=== PATIENT | male | born 1945 | race Caucasian/White ===

== ENCOUNTER 2016-07-16 00:40 | Inpatient (IN) | payer OTHER ==
[2016-07-16] VITALS (7 sets, daily range): BP systolic 150–169; BP diastolic 54–78
[~2016-07-16] VITALS: Ht 188 cm; Wt 115.7 kg
--- NOTE | ~2016-07-16 | HC ---
[facility] [address] [place] [address] CONSULTATION Name: NE FIGUEREDO Room #: 405-P [facility] IN M.R.#: [id number] Admission: 07/16/16 Attend Phys: David Madden MD Discharge: 07/19/16 Date of : 45 Report #: [id number] THIS REPORT FOR: //name// CC: FAM physician/PCP David Madden DATE OF SERVICE: 07/16/2016 PRIMARY CARE PHYSICIAN: Ne Green MD. REFERRAL PHYSICIAN: David Madden MD. REASON FOR REFERRAL: Dyspnea. HISTORY OF PRESENT ILLNESS: The patient is a 70-year-old white male who presents to the Emergency Room with 5-day history of progressive cough and dyspnea. A pulmonary consultation was requested. The patient is known to the Pulmonary Service. He is followed longitudinally by Dr. Metzger. He has known asthma. His last spirometry performed last year shows mild airflow obstruction. Normally for his asthma, he is on Qvar 80 mcg 1 puff twice a day and albuterol 2 puffs p.r.n. Albuterol in the past has caused worsening anxiety. The patient has been at [facility] for rehabilitation recently. He was doing fairly well until 5 days ago. Otherwise, denies any chest pain, hemoptysis, nausea, vomiting, diarrhea. PAST MEDICAL HISTORY: Remarkable for asthma, mild persistent, on inhaled corticosteroid therapy, coronary artery disease with ischemic cardiomyopathy, EF approximately 37%, hyperlipidemia, hypertension, bipolar disorder, dyspepsia, degenerative joint disease. PAST SURGICAL HISTORY: Remarkable for vocal cord nodule resection in 1985. ALLERGIES: None to medications. MEDICATIONS: Lists are reviewed. Inhalers as mentioned above including Qvar and albuterol. Medications include iron supplements, Depakote, Zocor, bupropion, Risperdal, Glucotrol, Actos, Pepcid, aspirin, Excedrin, Advil, Lotensin, Pristiq, Coreg, clonazepam, Colace, Ventolin HFA 2 puffs p.r.n., Advair which was supposed to be discontinued, Levemir, Glucophage, Centrum, MiraLax, Dulcolax, DuoNeb p.r.n., Levaquin 750 mg once a day, prednisone 40 mg once a day. [address] [address] CONSULTATION Name: NE FIGUEREDO Room #: 405-P ON LICENSE OF [facility].#: [id number] Admission: 07/16/16 Attend Phys: David Madden MD Discharge: 07/19/16 Date of : 45 Report #: [id number] FAMILY HISTORY: Notable for prostate cancer in father who . Mother at 60 years of age, she had cervical cancer. SOCIAL HISTORY: The patient has smoked for about 35 years at a pack a day, quit more than 5 years ago. He drinks socially. He is retired from office work. REVIEW OF SYSTEMS: As mentioned above, otherwise 10-point system review negative. PHYSICAL EXAMINATION: GENERAL: He is awake, alert, in no apparent distress. VITAL SIGNS: Temperature is 98 degrees Fahrenheit, pulse is 70, respiratory rate is 20, blood pressure 150/67 mmHg, saturation 91% on supplemental O2. HEENT: Normocephalic, atraumatic. NECK: Supple without any lymphadenopathy or thyromegaly. CHEST: Breath sounds have decreased bilaterally. No obvious wheezes or rales. CARDIOVASCULAR: Normal S1, S2. There are no murmurs or gallop. There is no JVD. There is no carotid bruit. Pulses are 2+/4+ bilaterally. ABDOMEN: Soft, nontender, no organomegaly or masses felt. EXTREMITIES: There is no cyanosis or clubbing, remarkable for less than 1+ bilateral pretibial edema. LABORATORY DATA: Portable chest x-ray shows vascular congestion, small lung volume, questionable mild right lower lobe infiltrates. Ammonia level was 33, VQ scan showed low probability scan. BNP is 1700. Troponin is normal. D-dimer was 0.95. IMPRESSION: 1. Progressive cough and dyspnea in this 70-year-old white male. Chest x-ray suggests possible right lower lobe infiltrates. He has a history of asthma. Suspect the patient has component exacerbation of asthma with possible pneumonia. With his history of tobacco use, he likely has a component of chronic obstructive lung disease in addition. 2. Mild infiltrates, possible pneumonia. 3. Encephalopathy, he was found to be lethargic on the day of admission. This has improved. 4. Bipolar disorder. 5. Diabetes mellitus type 2. 6. Hypertension. RECOMMENDATION: Agree with broad spectrum antibiotics, corticosteroids and bronchodilators. DVT and GI prophylaxis will be addressed. [address] [address] CONSULTATION Name: NE FIGUEREDO Room #: 405-P [facility] IN M.R.#: [id number] Admission: 07/16/16 Attend Phys: David Madden MD Discharge: 07/19/16 Date of : 45 Report #: [id number] Thank you for this consultation. <ELECTRONICALLY SIGNED> By: Ernesto Vasquez MD 07/19/16 1634 1701 1822 Ernesto Vasquez MD /nt
--- NOTE | ~2016-07-16 | EKG ---
[address] [address] ELECTROCARDIOGRAM REPORT Name: NE FIGUEREDO Room #: 405-P ADM IN M.R.#: [id number] Admission: 07/16/16 Attend Phys: David Madden MD Discharge: Date of : 45 Report #: [id number] THIS REPORT FOR: //name// [facility] ED Test Date: 2016-07-16 Test Time: 00:55:56 Pat Name: NE FIGUEREDO Department: Room: 405 Gender: M Production Line Worker: MINO : 1945 Requested By: Emy Aguilar Order Number: [id number] MD: Arthur Castillo Measurements Intervals [place] Rate: 82 P: 53 [place]: 197 QRS: 66 QRSD: 160 T: -51 QT: 418 QTc: 489 Interpretive Statements Atrial-sensed ventricular-paced rhythm No further analysis attempted due to paced rhythm No previous ECG available for comparison Electronically Signed On 07-16-2016 8:22:54 BEAN ROASTER by Arthur Castillo [email or web address] <ELECTRONICALLY SIGNED> By: Arthur Castillo MD 07/16/16 0822 0055 Arthur Castillo MD /KENNETH
--- NOTE | ~2016-07-16 | D ---
[facility] [place] [address] [place] [address] DISCHARGE SUMMARY Name: NE FIGUEREDO Room #: 405-P [facility] IN M.R.#: [id number] Admission: 07/16/16 Attend Phys: David Madden MD Discharge: Date of : 45 Report #: [id number] THIS REPORT FOR: //name// CC: [facility] physician/PCP David Madden DATE OF SERVICE: 07/19/2016 TYPE OF DICTATION: Discharge summary after kwss-ss-frro encounter on 07/19/2016. DISCHARGE DIAGNOSES: 1. Lethargy, resolved. 2. Acute respiratory failure with hypoxemia, resolved. 3. Chronic obstructive pulmonary disease exacerbation, resolved. 4. Healthcare-associated pneumonia, right lower lobe infiltrate. 5. Diabetes mellitus. 6. Hypertension. 7. Bipolar disorder. DISCHARGE MEDICATIONS: See discharge summary. HOSPITAL COURSE: The patient was admitted to the hospital from assisted secondary to lethargy. The patient was found to have pneumonia in the right lower lobe. The patient was started on Zosyn and he was responding well. At the same time, he has COPD exacerbation and he was started on IV steroids and bronchodilators and he responded very well. The patient continues to improve, so we are going to taper his steroids. He was evaluated for rehab, but did not qualify. So, he is going back to the SNF service. The patient is stable. His last chest x-ray done today had no changes from previous exam. The patient is stable and going to SNF as I mentioned. The patient was complaining of abdominal distention and we did an ultrasound of the abdomen, without any changes or pathology there. It was normal. Also he had got the lung scan and V/Q scan, which did not show any pulmonary embolism. So, the patient is going to SNF as mentioned above. <ELECTRONICALLY SIGNED> By: Justina Andino MD 07/19/16 1438 1146 1227 Justina Andino MD /nt
--- NOTE | ~2016-07-16 | 2DMMODE ---
[facility] [place] [address] 2 D/M-MODE ECHOCARDIOGRAM Name: NE FIGUEREDO Room #: 405-P [facility] IN .#: [id number] Admission: 07/16/16 Attend Phys: Dhruv Browne Discharge: Date of : 45 Date of Service: 07/16/16 1409 Report #: [id number] THIS REPORT FOR: //name// Transthoracic Echocardiography Ordering physician: Referring physician: Brandon Francis Director Furniture: Melodie Spencer Indications/History: Short of breath. Hx: Pacemaker 06/2016, DM, HTN, HLP BP: 155 / HR: 75bpm Height: 74in Weight: 254.5lb 67 Study data: M-mode, complete 2D, complete spectral Doppler, and color Doppler. Location: Bedside. Routine. Image quality was adequate. 2D measurements Normal Normal LVID ED 64.2mm 36-57 IVS ED 10.3mm 6-11 LVID ES 47.4mm 23-40 LVPW ED 11.4mm 6-11 LA volume 32ml/m2 16-28 AoRoot diam 35.1mm 21-37 index ED LVOT diameter 24mm 18-23 Findings: Left ventricle: The cavity size was dilated. Wall thickness was normal. Systolic function was normal. The estimated ejection fraction was in the range of 50% to 55%. Wall motion was normal. Right ventricle: The cavity size was mildly dilated. Systolic function was normal. Ventricular septum: Paradoxical motion of septum consistent with a paced rhythm.. Right atrium: The atrium was mildly dilated. Pacer wire or catheter noted in right atrium. Left atrium: The atrium was mildly dilated. Volume index: 32ml/m2 (S). [facility] [place] [address] 2 D/M-MODE ECHOCARDIOGRAM Name: NE FIGUEREDO Room #: 405-P [facility] IN M.R.#: [id number] Admission: 07/16/16 Attend Phys: David LeónDhruv Marquez Discharge: Date of : 45 Date of Service: 07/16/16 1409 Report #: [id number] Aortic valve: Structurally normal valve. Doppler: There was no stenosis. No regurgitation. Peak velocity: 128.1cm/s (S). Mitral valve: Mildly calcified annulus. Mildly thickened leaflets . Doppler: There was no evidence for stenosis. Mild to moderate regurgitation. Peak E-wave velocity: 68.7cm/s. Peak A-wave velocity: 133.6cm/s. Tricuspid valve: Structurally normal valve. Doppler: There was no evidence for stenosis. Mild regurgitation. Regurgitant peak velocity: 288.1cm/s. Peak RV-RA gradient: 33mm Hg (S). Pulmonic valve: Structurally normal valve. Doppler: There was no evidence for stenosis. Trivial regurgitation. Pericardium: There was no pericardial effusion. Aorta: Aortic root: The aortic root was normal in size. Pulmonary artery: Systolic pressure was estimated to be 38mm Hg. Diastolic function: Doppler parameters are consistent with abnormal left ventricular relaxation (grade 1 diastolic dysfunction). Systemic veins: Inferior vena cava: The vessel was normal in size; the respirophasic diameter changes were in the normal range (= 50%). Conclusions 1. Left ventricle: The cavity size was dilated. Wall thickness was normal. Systolic function was normal. The estimated ejection fraction was in the range of 50% to 55%. Wall motion was normal. 2. Ventricular septum: Paradoxical motion of septum consistent with a paced rhythm.. 3. Right ventricle: The cavity size was mildly dilated. 4. Right atrium: Pacer wire or catheter noted in right atrium. 5. Aortic valve: Structurally normal valve. 6. Mitral valve: Mildly calcified annulus. Mildly thickened leaflets . Mild to moderate regurgitation. 7. Pulmonic valve: Trivial regurgitation. 8. Tricuspid valve: Mild regurgitation. [facility] [address] [place] [address] 2 D/M-MODE ECHOCARDIOGRAM Name: NE FIGUEREDO Room #: 405-P [facility] IN .R.#: [id number] Admission: 07/16/16 Attend Phys: Dhruv Browne Discharge: Date of : 45 Date of Service: 07/16/16 140 Report #: [id number] 9. Pulmonary arteries: Systolic pressure was estimated to be 38mm Hg. <ELECTRONICALLY SIGNED> By: Cameron Garcia MD 07/16/16 1516 1409 15 Cameron Garcia MD /cayla
[~2016-07-16 00:40] MED LIST: APAP500 PO; ASPIR 8181 MG PO; BEANO300 UNIT PO; BENAZEPRIL HCL20 MG PO; BUPROPION HCL200 MG PO; DEPAKOTE 250MG250 M1 PO; EXCEDRIN CAPLE1 EACH PO; GLUCOTROL5 MG PO; IBUPROFEN 200200 M1 PO; IRON325 PO; METFORMIN HCL500 MG PO; PEPCID20 MG PO; PIOGLITAZONE15 MG; PRISTIQ50 M1 PO; RISPERDAL4 M1 PO; ZOCOR20 MG PO
[2016-07-16] MEDS ORDERED: ACCUNEB SO1.25 MG/1 INH (01:00)
[2016-07-16] MEDS ORDERED: EXCEDRIN CAPLE1 EACH PO (01:01)
[2016-07-16] MEDS ORDERED: COREG25 MG PO (01:02)
[2016-07-16] MEDS ORDERED: CLONAZEPAM 0.50.5 M1 PO (01:03)
[2016-07-16] MEDS ORDERED: COLACE100 MG PO (01:04)
[2016-07-16 01:06] LABS: HEMATOCRIT 39.3 % (42.0-52.0); MCH 31.1 pg (26.0-34.0); MCHC 33.1 % (28.0-37.0); MCV 94.1 fL (80.0-100.0); PLATELET COUNT 127 thou/uL (150-400); RBC 4.17 mil/uL (4.50-6.00); WBC 6.6 thou/uL (4.0-11.0)
[2016-07-16 01:10] LABS: MANUAL DIFF YES
[2016-07-16] MEDS ORDERED: VENTOLIN HFA 1818 GM INH (01:12)
[2016-07-16] MEDS ORDERED: ADVAIR HFA 230M12 GM INH (01:18)
[2016-07-16 01:20] LABS: CALCIUM 8.7 mg/dL (8.5-10.1); CREATININE 0.8 mg/dL (0.6-1.3); POTASSIUM 4.4 mmol/L (3.5-5.1)
[2016-07-16] MEDS ORDERED: LEVEMIR SUBQ (01:24)
[2016-07-16] MEDS ORDERED: GLUCOPHAGE XR500 MG PO (01:24)
[2016-07-16] MEDS ORDERED: CENTRUM SILVER1 EAC2 PO (01:25)
[2016-07-16] MEDS ORDERED: MIRALAX17 GM PO (01:28)
[2016-07-16] MEDS ORDERED: BISACODYL SUPP10 MG RECTAL (01:32)
[2016-07-16] MEDS ORDERED: DUONEB 2.5-0.5 M3 ML PO (01:33)
[2016-07-16] MEDS ORDERED: LEVAQUIN 750 M750 MG PO (01:33)
[2016-07-16] MEDS ORDERED: PREDNISONE 10 M10 MG PO (01:34)
[2016-07-16] MEDS ORDERED: PROBIOTIC1 EAC5 PO (01:34)
[2016-07-16 01:42] LABS: ABSOLUTE NEUTROPHILS 3.8 thou/uL (1.4-8.2); TOTAL CELL COUNT 100
[2016-07-16 09:08] LABS: ABG SAMPLE TYPE ARTERIAL; BE(vivo) 4.1 mmol/L (-2 to +3); HCO3 29.1 mmol/L (22.0-26.0); LACTATE 1.09 mmol/L (0.5-2.0); O2(CT) 16.4 mL/dL (15.0-23.0); O2Hb 85.5 % (92.0-98.0); PCO2 44.8 mmHg (35.0-45.0); PO2 50.9 mmHg (80.0-100.0); STICK SITE R.BRACHIAL; sO2 86.8 % (92.0-98.0); tCO2 30.4 mmol/L (24.0-30.0)
[2016-07-17 04:25] VITALS: BP 146/57
[2016-07-17 08:00] VITALS: BP 149/68
[2016-07-17 16:00] VITALS: BP 167/66
[2016-07-17 20:00] VITALS: BP 143/64
[2016-07-18 06:22] LABS: ABSOLUTE NEUTROPHILS 7.9 thou/uL (1.4-8.2); BASOPHILS 0.2 % (0.0-2.0); HEMATOCRIT 39.2 % (42.0-52.0); HEMOGLOBIN 13.2 gm/dL (14.0-18.0); MCH 30.9 pg (26.0-34.0); MCHC 33.6 % (28.0-37.0); MONOCYTES 5.4 % (1.0-8.0); PLATELET COUNT 161 thou/uL (150-400); POLYS 82.4 % (36.0-66.0); RBC 4.26 mil/uL (4.50-6.00); RDW 13.4 % (10.5-14.5); WBC 9.6 thou/uL (4.0-11.0)
[2016-07-18 06:28] LABS: MANUAL DIFF NO
[2016-07-18 06:31] LABS: CALCIUM 8.7 mg/dL (8.5-10.1); CREATININE 0.7 mg/dL (0.6-1.3); POTASSIUM 4.2 mmol/L (3.5-5.1)
[2016-07-18 08:00] VITALS: BP 161/68
[2016-07-18 19:47] VITALS: BP 144/56
[2016-07-19 00:32] VITALS: BP 155/73
[2016-07-19 05:43] LABS: ABSOLUTE NEUTROPHILS 6.4 thou/uL (1.4-8.2); BASOPHILS 0.4 % (0.0-2.0); HEMATOCRIT 41.2 % (42.0-52.0); HEMOGLOBIN 13.8 gm/dL (14.0-18.0); LYMPHOCYTES 16.6 % (24.0-44.0); MCH 31.4 pg (26.0-34.0); MCHC 33.5 % (28.0-37.0); MCV 93.9 fL (80.0-100.0); MONOCYTES 7.6 % (1.0-8.0); PLATELET COUNT 172 thou/uL (150-400); POLYS 75.4 % (36.0-66.0); RBC 4.38 mil/uL (4.50-6.00); WBC 8.5 thou/uL (4.0-11.0)
[2016-07-19 05:49] LABS: MANUAL DIFF NO
[2016-07-19 06:05] LABS: CALCIUM 8.6 mg/dL (8.5-10.1); CREATININE 0.8 mg/dL (0.6-1.3); POTASSIUM 4.1 mmol/L (3.5-5.1)
[2016-07-19 08:00] VITALS: BP 163/69
[2016-07-19] MEDS ORDERED: ZOSYN 3.3753.375 GM IV (11:52)
== END 2016-07-19 15:12 | DRG 177 ==
LOC: ER 00:40 → EROBS 01:46 → 4N 01:46
PROVIDERS: Emergency Medicine; Hospitalist; Nurse Practitioner
DX: J69.0 Pneumonitis due to inhalation of food and vomit (principal); G92 Toxic encephalopathy; J96.01 Acute respiratory failure with hypoxia; J44.1 Chronic obstructive pulmonary disease with (acute) exacerbation; E11.9 Type 2 diabetes mellitus without complications; F31.9 Bipolar disorder, unspecified; I10 Essential (primary) hypertension; E78.5 Hyperlipidemia, unspecified; I25.10 Atherosclerotic heart disease of native coronary artery without angina pectoris; I25.5 Ischemic cardiomyopathy; M19.90 Unspecified osteoarthritis, unspecified site; R53.83 Other fatigue; J98.01 Acute bronchospasm; Z79.82 Long term (current) use of aspirin; Z79.899 Other long term (current) drug therapy; Z87.891 Personal history of nicotine dependence; Z80.42 Family history of malignant neoplasm of prostate; Z80.59 Family history of malignant neoplasm of other urinary tract organ
CPT/HCPCS: 10790

== ENCOUNTER → 2019-08-05 | Outpatient (CLI) | payer OTHER ==
[~2019-08-05] MED LIST changes: +ACCUNEB SO1.25 MG/1 INH; +ADVAIR HFA 230M12 GM INH; -APAP500 PO; +BISACODYL SUPP10 MG RECTAL; +CENTRUM SILVER1 EAC2 PO; +CLONAZEPAM 0.50.5 M1 PO; +CLOPIDOGREL75 MG PO; +COLACE100 MG PO; +COREG25 MG PO; +COZAAR 25 MG TA25 M1 PO; +DUONEB 2.5-0.5 M3 ML PO; +FUROSEMIDE 40 M40 MG PO; +GLUCOPHAGE XR500 MG PO; +LEVAQUIN 750 M750 MG PO; +LEVEMIR SUBQ; +MIRALAX17 GM PO; +POTASSIUM20 PO; +PREDNISONE 10 M10 MG PO; +PROBIOTIC1 EAC5 PO; +TYLENOL EXTRA500 MG PO; +VENTOLIN HFA 1818 GM INH; +ZOSYN 3.3753.375 GM IV
== END ==
LOC: SJCVC 15:47
DX: I45.4 Nonspecific intraventricular block (principal); R94.31 Abnormal electrocardiogram [ECG] [EKG]; I42.9 Cardiomyopathy, unspecified; I10 Essential (primary) hypertension; E78.00 Pure hypercholesterolemia, unspecified; E11.9 Type 2 diabetes mellitus without complications; I25.10 Atherosclerotic heart disease of native coronary artery without angina pectoris; Z95.0 Presence of cardiac pacemaker; Z79.899 Other long term (current) drug therapy; Z87.891 Personal history of nicotine dependence

== ENCOUNTER → 2019-08-26 | Outpatient (CLI) | payer OTHER | LOC: SJCVCIMAG 12:27 | DX: I11.9 Hypertensive heart disease without heart failure (principal); I25.89 Other forms of chronic ischemic heart disease; R06.09 Other forms of dyspnea; I42.9 Cardiomyopathy, unspecified; R07.9 Chest pain, unspecified; E78.00 Pure hypercholesterolemia, unspecified; Z79.82 Long term (current) use of aspirin; Z79.899 Other long term (current) drug therapy ==

== ENCOUNTER 2019-08-31 06:35 | Outpatient (CLI) | payer OTHER ==
[~2019-08-31] VITALS: Ht 185.4 cm; Wt 108.4 kg
[~2019-08-31 06:35] MED LIST changes: -CLOPIDOGREL75 MG PO; -COZAAR 25 MG TA25 M1 PO; -FUROSEMIDE 40 M40 MG PO; -POTASSIUM20 PO
[2019-08-31 07:27] LABS: HEMATOCRIT 42.1 % (42.0-52.0); HEMOGLOBIN 14.1 gm/dL (14.0-18.0); MCHC 33.4 g/dL (28.0-37.0); MCV 95.8 fL (80.0-100.0); RBC 4.4 mil/uL (4.50-6.00); RDW 13.2 % (10.5-14.5); WBC 8.3 thou/uL (4.0-11.0)
[2019-08-31 07:29] VITALS: BP 133/74
[2019-08-31 07:35] LABS: CALCIUM 9.5 mg/dL (8.5-10.1); CREATININE 0.9 mg/dL (0.7-1.3); POTASSIUM 4.2 mmol/L (3.5-5.1)
[2019-08-31] MEDS ORDERED: FUROSEMIDE 40 M40 MG PO (07:54)
[2019-08-31] MEDS ORDERED: POTASSIUM20 PO (07:54)
[2019-08-31] MEDS ORDERED: COZAAR 25 MG TA25 M1 PO (07:55)
[2019-08-31] MEDS ORDERED: CLONAZEPAM 0.50.5 M1 PO (07:56)
[2019-08-31 12:18] VITALS: BP 147/58
--- NOTE | 2019-08-31 17:09 | CATHLAB ---
[facility] [place] [address] [place] [address] INVASIVE PROCEDURE REPORT Name: NE FIGUEREDO Room #: 214-P [facility]#: [id number] Admission: 08/31/19 Attend Phys: Sheldon Murray MD Discharge: Date of : 45 Report #: [id number] THIS REPORT FOR: cc: Ne Green MD, David L. MD Park, Jin S. MD ~ APPROVED REPORT Study performed: 08/31/2019 07:34:11 Patient Details Patient Status: Out-Patient Room #: The patient is a 73 year-old male Event Personnel Sheldon Murray Griddle Cook, Jordana Ricketts RN RN, Vickie Villalba RTJose Nunes, Ne Rothman Monitor Procedures Performed Left Heart Cath w/or w/o Coronaries [id number] [facility] Aortogram Abdominal Peripheral Angio [id number] Indication Dyspnea, Positive stress test Risk Factors HypercholesterolemiaPhysical Activity, Coronary Artery DiseaseHypertension Procedure Narrative The Right Groin^ was infiltrated with 1% Lidocaine subcutaneous anesthesia. A PINNACLE 4FR Sheath #[id number] sheath was inserted into the RFA^. Coronary angiography was performed using coronary diagnostic catheters. The right coronary system was accessed and visualized with a JR4 catheter. The left coronary system was accessed and visualized with a JL4 catheter. The left ventricle was accessed and visualized with a PIGTAIL catheter. Left ventricular/Aortic Valve gradient assessed via catheter pullback. An aortogram of the abdominal aorta was performed. The patient tolerated the procedure well and there were no complications associated with the procedure. A 4 Setswana sheath was inserted into the right femoral artery via modified Seldinger technique. Injections revealed a severe occlusion involving the right iliac artery. An abdominal aortography was performed just above the bifurcation of the iliac arteries revealing [facility] [address] [place] [address] INVASIVE PROCEDURE REPORT Name: NE FIGUEREDO Room #: 214-P [facility]#: [id number] Admission: 08/31/19 Attend Phys: Sheldon Murray MD Discharge: Date of : 45 Report #: [id number] severe stenosis of the right iliac system. Intraoperative Conscious Sedation Sedation start time: 8.15 Case end Time: 8.50 Fentanyl 50 mcg Versed 1 mg Fluoro Time: 5.58 minutes Dose: DAP 7482.00 cGycm2 534 mGy Contrast Type and Amount: Omnipaque 85 ml Coronary Angiography The patient's coronary anatomy is right dominant. Diagnostic Cath Left Main The left main artery is a large-caliber vessel, patent with no flow-limiting lesions. LAD The LAD is a moderate size caliber vessel, traversing the anterior wall and wrapping around the apex. There is mild disease in the mid segment, 20%. Diagonal 1 This is a small to moderate-sized vessel, patent with no flow-limiting lesions Diagonal 2 This is a small to moderate-sized vessel, patent with no flow-limiting lesions. Circumflex There is mild disease in the proximal circumflex artery, 20%. OM1 This is a small to moderate-sized vessel, patent with no flow-limiting lesions. OM2 This is a small to moderate-sized vessel, patent with no flow-limiting lesions. Right Coronary The RCA is a dominant vessel with mild disease in the mid segment, 30%. R PDA This is a moderate size caliber vessel, patent with no flow-limiting lesions. RPLV This is a moderate size caliber vessel, patent with no flow-limiting lesions. Left Ventriculography Left Ventriculography was not performed. Ejection Fraction was >55% based off patient's Nuclear Cardiac Stress Test. An LV EDP was measured and there is no gradient across the outflow tract. Hemodynamics The aortic pressure is 179/77 mmHg with a mean of 115 mmHg. The left ventricular pressure is 180/17 mmHg with a mean of mmHg. The left [facility] [address] [place] [address] INVASIVE PROCEDURE REPORT Name: TERELLNE Danny Room #: 214-P [facility] M.R.#: [id number] Admission: 08/31/19 Attend Phys: Sheldon Murray MD Discharge: Date of : 45 Report #: [id number] ventricular end diastolic pressure is 27 mmHg. There was no gradient across the aortic valve upon pullback. Pullback from the left ventricle to the aorta revealed no gradient across the aortic valve. Conclusion 1. Mild, nonobstructive CAD involving the epicardial vessels. 2. Right dominant system. 3. Normal LV systolic function. 4. Peripheral vascular disease with severe right iliac artery stenosis. 5. Recommend aggressive risk factor management. <ELECTRONICALLY SIGNED> By: Sheldon Murray MD 08/31/191707 07 07 Sheldon Murray MD /INF
--- NOTE | 2019-08-31 17:48 | NUR ---
PT ARRIVED TO UNIT FROM GREEN TIRE INSPECTOR BY GREEN TIRE INSPECTOR STAFF. PT ALERT AND ORIENTED. VSS. DENIES PAIN. O2 SATS WNL ON ROOM AIR. RIGHT GROIN SITE CDI, NO HEMATOMA. INSTRUCTED IMMOBILIZATION FOLLOWED PER ORDERS. POST CATH VITALS TAKEN, WILL CHART. ADMISSION COMPLETE. PT EXPRESSED DURING ADMISSION HAS PREVIOUSLY HAD THOUGHTS OF SI. PT DENIES HAVING CURRENT THOUGHTS OF SI, DENIES HAVING A PLAN. DENIES HAVING THOUGHTS/PLAN WITHIN LAST MONTH. CASE MANAGEMENT CONSULTED. CONSENTS SIGNED. RIGHT GROIN SITE REMAINS CDI W/O HEMATOMA. PT C/O HEADACHE- MANAGED WITH PO TYLENOL. PT CURRENTLY SITTING UP IN CHAIR. DENYING OF NEEDS/CONCERNS.
[2019-08-31 20:26] VITALS: BP 128/64
[2019-09-01 05:04] VITALS: BP 111/51
--- NOTE | 2019-09-01 05:26 | NUR ---
ASSUMED CARE OF PT AT 1900HRS. PT IS AOX4 AND LETS NEEDS BE KNOWN. FALL PRECAUTION IN PLACE. SUGGICAL SITE IS C/D/I WITH NO HEMATOMA. PT AMULATED SEVERAL TIMES. PT DENIED ANY PAIN OR NAUSEA. PT COMPLAINED OF SOME SOA BUT O2 SAT WAS WNL. PT WAS ABLE TO GET COMFORTABLE AND SLEEP PART OF THE SHIFT. VSS AND NO S/S OF ACUTE DISTRESS. WILL CONTINE TO MONITOR.
[2019-09-01 05:28] LABS: HEMATOCRIT 39.5 % (42.0-52.0); HEMOGLOBIN 13.2 gm/dL (14.0-18.0); MCH 32.4 pg (26.0-34.0); MCHC 33.5 g/dL (28.0-37.0); MCV 96.6 fL (80.0-100.0); RBC 4.09 mil/uL (4.50-6.00); RDW 13.4 % (10.5-14.5); WBC 8.5 thou/uL (4.0-11.0)
[2019-09-01 05:34] LABS: CALCIUM 8.8 mg/dL (8.5-10.1); CREATININE 0.9 mg/dL (0.7-1.3); POTASSIUM 3.9 mmol/L (3.5-5.1)
[2019-09-01 07:00] VITALS: BP 126/58
[2019-09-01] MEDS ORDERED: CLOPIDOGREL75 MG PO (08:05)
[2019-09-01 08:48] VITALS: BP 111/51
[2019-09-01 09:12] VITALS: BP 126/58
--- NOTE | 2019-09-01 10:29 | NUR ---
PT CARE ASSUMED APPROX 0700. ASSESSMENT CHARTED. DENIED PAIN AND SOA. VSS. PT APPROVED FOR DISCHARGE THIS AM. DISCHARGE EDUCATION COMPLETED WITH PT. HE DENIED QUESTIONS OR CONCERNS REGARDING POST HOSPITAL CARES AND F/U. RIGHT GROIN POST CATH SITE C/D/I. IV OUT, TELE BOX OFF. HOSPITAL STAFF ESCORTED PT OUT APPROX 1000.
--- NOTE | 2019-09-04 08:28 | D ---
[facility] [place] [address] [place] [address] DISCHARGE SUMMARY Name: NE FIGUEREDO Room #: DEP GELACIO Anguiano#: [id number] Admission: 08/31/19 Attend Phys: Sheldon Murray MD Discharge: 09/01/19 Date of : 45 Report #: [id number] THIS REPORT FOR: cc: Ne Green MD, David L. MD Park, Jin S. MD ~ THIS REPORT FOR: //name// CC: Ne Murray FINAL DIAGNOSES: 1. Peripheral vascular disease, status post percutaneous intervention. 2. Coronary artery disease, nonobstructive. 3. Cardiomyopathy. 4. Bipolar disorder. 5. Diabetes mellitus. 6. Hypertension. 7. Hypercholesterolemia. HOSPITAL COURSE: See the original H and P for full details. The patient presented with dyspnea and abnormal nuclear stress test. Cardiac catheterization revealed nonobstructive CAD and medical therapy is recommended. He was found to have severe occlusions of the iliac arteries. Dr. Barr performed a peripheral angiogram and underwent placement of stents to the iliac arteries. He remained stable overnight. He is ambulating on the floor without any issues. He is stable for discharge. He will continue his medications including aspirin, Wellbutrin, Coreg, Klonopin, Depakote, furosemide, losartan 50 mg, metformin, potassium and simvastatin. He will also take Plavix 75 mg daily. He will have a followup in the office. <ELECTRONICALLY SIGNED> By: Sheldon Murray MD 09/04/1928 8 6 Sheldon Murray MD /nt
--- NOTE | 2019-09-10 15:31 | EKG ---
[facility] [place] [address] [place] [address] ELECTROCARDIOGRAM REPORT Name: NE FIGUEREDO Room #: [facility]#: [id number] Admission: 08/31/19 Attend Phys: Sheldon Murray MD Discharge: 09/01/19 Date of : 45 Report #: [id number] THIS REPORT FOR: cc: Ne Green MD, David L. MD Couchonnal, Luis F. MD ~ THIS REPORT FOR: //name// [facility] Test Date: 2019-08-31 Test Time: 07:06:07 Pat Name: NE FIGUEREDO Department: Room: Gender: Chemical Mixer: Trinidad WHITLEY : 1945 Requested By: Sheldon Murray Order Number: [id number] MD: Arthur Castillo Measurements Intervals [place] Rate: 74 P: 56 SD: 203 QRS: 42 QRSD: 164 T: -75 QT: 435 QTc: 483 Interpretive Statements Atrial-sensed ventricular-paced rhythm No further analysis attempted due to paced rhythm Compared to ECG 07/16/2016 00:55:56 No significant changes Electronically Signed On 08-31-2019 8:10:33 RN MATERNAL CHILD by Arthur Castillo [email or web address] <ELECTRONICALLY SIGNED> By: Arthur Castillo MD 08/31/1910 5 5 Arthur Castillo MD /EPI
== END 2019-09-01 11:10 | disposition home or self-care (01) ==
LOC: CATH 06:35 → 2N 13:11 → CATH 13:50 → ENTRNSPT 09-01 09:29 → EDTRNSPTSTS 09-01 09:32 → CATH 09-01 11:10
PROVIDERS: Internal Medicine Cardiovascular Disease
DX: R94.39 Abnormal result of other cardiovascular function study (principal); I25.10 Atherosclerotic heart disease of native coronary artery without angina pectoris; I70.213 Atherosclerosis of native arteries of extremities with intermittent claudication, bilateral legs; I10 Essential (primary) hypertension; E78.00 Pure hypercholesterolemia, unspecified; E11.9 Type 2 diabetes mellitus without complications; J44.9 Chronic obstructive pulmonary disease, unspecified; K21.9 Gastro-esophageal reflux disease without esophagitis; E78.5 Hyperlipidemia, unspecified; F32.1 Major depressive disorder, single episode, moderate; M19.90 Unspecified osteoarthritis, unspecified site; Z98.890 Other specified postprocedural states; Z79.899 Other long term (current) drug therapy; Z95.0 Presence of cardiac pacemaker; Z82.49 Family history of ischemic heart disease and other diseases of the circulatory system; Z87.891 Personal history of nicotine dependence
CPT/HCPCS: 10081

== ENCOUNTER 2019-10-15 09:20 | Emergency (ER) | payer OTHER ==
[~2019-10-15] VITALS: Ht 188 cm; Wt 113.4 kg
[~2019-10-15 09:20] MED LIST changes: +CLOPIDOGREL75 MG PO; +COZAAR 25 MG TA25 M1 PO; +FUROSEMIDE 40 M40 MG PO; +POTASSIUM20 PO
[2019-10-15 09:48] LABS: ABSOLUTE NEUTROPHILS 4.6 thou/uL (1.4-8.2); BASOPHILS 0.5 % (0.0-2.0); EOSINOPHILS 1.2 % (0.0-3.0); HEMOGLOBIN 14.8 gm/dL (14.0-18.0); LYMPHOCYTES 24.4 % (24.0-44.0); MCH 32.7 pg (26.0-34.0); MCHC 33.7 g/dL (28.0-37.0); MONOCYTES 9.4 % (1.0-8.0); PLATELET COUNT 166 thou/uL (150-400); POLYS 64.5 % (36.0-66.0); RBC 4.54 mil/uL (4.50-6.00); RDW 13.5 % (10.5-14.5); WBC 7.1 thou/uL (4.0-11.0)
[2019-10-15 10:07] LABS: ALBUMIN 3.2 g/dL (3.4-5.0); ANION GAP 11 mmol/L (7-16); BUN 19 mg/dL (7-18); CALCIUM 9.7 mg/dL (8.5-10.1); CHLORIDE 95 mmol/L (98-107); CO2 24 mmol/L (21-32); CREATININE 1.3 mg/dL (0.7-1.3); POTASSIUM 4.2 mmol/L (3.5-5.1); SGOT 11 U/L (15-37); SGPT 17 U/L (30-65); SODIUM 130 mmol/L (136-145); TOTAL BILIRUBIN 0.5 mg/dL (<0.1-1.0); TOTAL PROTEIN 6.9 g/dL (6.4-8.2); TROPONIN-I <0.06 ng/mL (<0.06)
[2019-10-15 10:34] LABS: GLUCOSE 610 mg/dL (74-106)
--- NOTE | 2019-10-15 12:20 | EKG ---
[facility] [place] [address] [place] [address] ELECTROCARDIOGRAM REPORT Name: NE FIGUEREDO Room #: [facility]#: [id number] Admission: 10/15/19 Attend Phys: Discharge: Date of : 45 Report #: [id number] THIS REPORT FOR: cc: Ne Green MD, David L. MD Couchonnal, Luis F. MD ~ THIS REPORT FOR: //name// [facility] ED Test Date: 2019-10-15 Test Time: 09:54:44 Pat Name: NE FIGUEREDO Department: Room: Gender: Therapist Radiation: [facility] [place] : 1945 Requested By: Liz Mckenzie Order Number: [id number] MD: Arthur Castillo Measurements Intervals [place] Rate: 70 P: -35 [place]: 200 QRS: 39 QRSD: 165 T: 252 QT: 442 QTc: 477 Interpretive Statements Atrial-sensed ventricular-paced complexes No further analysis attempted due to paced rhythm Compared to ECG 08/31/2019 07:06:07 No significant changes Electronically Signed On 10-15-2019 10:35:43 CDT by Arthur Castillo [email or web address] <ELECTRONICALLY SIGNED> By: Arthur Castillo MD 10/15/19 1035 0954 0954 Arthur Castillo MD /EPI
[2019-10-15] MEDS ORDERED: LANTUS SUBQ (13:02)
[2019-10-15 13:10] VITALS: BP 168/72
== END 2019-10-15 13:15 | disposition home or self-care (01) ==
LOC: ER 09:20
PROVIDERS: Student in an Organized Health Care Education/Training Program
DX: E11.65 Type 2 diabetes mellitus with hyperglycemia (principal); R06.00 Dyspnea, unspecified; R05 Cough; R06.02 Shortness of breath; I10 Essential (primary) hypertension; F17.210 Nicotine dependence, cigarettes, uncomplicated; Z79.899 Other long term (current) drug therapy; Z79.82 Long term (current) use of aspirin